=== PATIENT | female | born 1990 | race Caucasian/White ===

== ENCOUNTER 2020-10-12 07:08 | Day surgery (SDC) | payer BC ==
[2020-10-12] MEDS ORDERED: Sodium Chloride 0.9% 1,000 ML IV SCH (08:00)
[2020-10-12] MEDS ORDERED: Midazolam 1 MG/ML 2 ML SDV ONE (08:05)
[2020-10-12] MEDS ORDERED: fentaNYL 100 MCG/2 ML SDV ONE (08:05)
[2020-10-12] MEDS ORDERED: Propofol 200 MG/20 ML SDV ONE ×2 (08:05→08:55)
[2020-10-12 10:05] VITALS: BP 109/75; PULSE 70
--- NOTE | 2020-10-12 10:26 | OR ---
DATE OF PROCEDURE: 10/12/2020 SURGEON: Shin Fernandez MD PROCEDURES: 1. Colonoscopy. 2. Hemorrhoid banding. COMPLICATIONS: None. 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 ANESTHESIA: MAC. PREOPERATIVE DIAGNOSIS: Gastrointestinal bleed. POSTOPERATIVE DIAGNOSIS: Gastrointestinal bleed. FINDINGS: 1. Very small internal hemorrhoid. 2. No other etiology for gastrointestinal bleeding. RISKS: Risks, benefits, alternatives, and limitations including, but not limited to infection, bleeding, and injury to abdominal structures, perforation, false positives and false negatives and other risks not listed here were explained to the patient who wished to proceed. PROCEDURE IN DETAIL: The patient was placed in left lateral decubitus position. Digital rectal exam was performed without abnormality. Scope was introduced and advanced atraumatically to the ileocecal valve. A photo was taken of this. Scope was brought back to the ascending, transverse, descending colon, and retroflexed. No evidence of old or new blood. The patient had 1 small prominent hemorrhoid which was banded without difficulty. The patient tolerated the procedure well. Greater than 8 minutes was spent removing the scope. The prep was acceptable with 95% of the luminal surface could be seen. Shin Fernandez MD /[id number]
== END 2020-10-12 10:05 | disposition home or self-care (01) ==
LOC: JP.SDS 07:08
PROVIDERS: ATTEND Surgery
DX: K64.8 Other hemorrhoids (principal)
CPT/HCPCS: 81025; J2250; J2704; J3010; J7030